=== PATIENT | male | born 1945 | race Caucasian/White ===

== ENCOUNTER 2023-06-27 12:20 | Day surgery (SDC) | payer OTHER ==
[~2023-06-27] VITALS: Ht 177.8 cm; Wt 72.7 kg
[~2023-06-27 12:20] MED LIST: Advil200 M1 PO; CALCA500CH PO; NAPR500 PO
[2023-06-27] MEDS ORDERED: ERGO400 (12:35)
[2023-06-27 14:30] VITALS: BP 131/73
== END 2023-06-27 14:36 | disposition home or self-care (01) ==
LOC: ORSCSDS 12:20
PROVIDERS: Surgery
PROC: 0DBP8ZX Excision of Rectum, Via Natural or Artificial Opening Endoscopic, Diagnostic (ICD-10-PCS; principal; 2023-06-27 13:45)
PROC: 0DBC8ZX Excision of Ileocecal Valve, Via Natural or Artificial Opening Endoscopic, Diagnostic (ICD-10-PCS; principal; 2023-06-27 13:45)
DX: Z12.11 Encounter for screening for malignant neoplasm of colon (principal); Z86.010 Personal history of colon polyps; K62.1 Rectal polyp; K57.30 Diverticulosis of large intestine without perforation or abscess without bleeding; R93.3 Abnormal findings on diagnostic imaging of other parts of digestive tract; E11.9 Type 2 diabetes mellitus without complications; E55.9 Vitamin D deficiency, unspecified; K52.9 Noninfective gastroenteritis and colitis, unspecified; F17.210 Nicotine dependence, cigarettes, uncomplicated
CPT/HCPCS: 88305; J2704; J7120

== ENCOUNTER 2024-06-19 07:54 | Emergency (ER) | payer OTHER ==
[~2024-06-19] VITALS: Ht 177.8 cm; Wt 70.8 kg
[~2024-06-19 07:54] MED LIST changes: +ERGO400
[2024-06-19] MEDS ORDERED: Methocarbamol 500 MG Tab PO ONE (09:10)
[2024-06-19] MEDS ORDERED: Methyl Salicylate/Menth/Camph 57 GM TUBE TOP ONE (09:10)
[2024-06-19] MEDS ORDERED: Ibuprofen 600 MG Tab PO ONE (09:10)
[2024-06-19 09:44] LABS: BASOPHILS ABSOLUTE AUTO 0.02 K/mm3 (0.00-0.23); BASOPHILS PERCENT AUTO 0 % (0-2); EOSINOPHILS ABSOLUTE AUTO 0.11 K/mm3 (0.00-0.68); EOSINOPHILS PERCENT AUTO 2 % (0-6); Hematocrit 44.3 % (37.0-53.0); Hemoglobin 14.8 g/dL (13.5-17.5); IMMATURE GRAN ABSOLUTE AUTO 0.02 K/mm3 (0.00-0.10); IMMATURE GRAN PERCENT AUTO 0 % (0-1); LYMPHOCYTES ABSOLUTE AUTO 1.38 K/mm3 (0.84-5.20); LYMPHOCYTES PERCENT AUTO 19 % (21-46); MONOCYTES ABSOLUTE AUTO 1.31 K/mm3 (0.16-1.47); MONOCYTES PERCENT AUTO 18 % (4-13); Mean Corpuscular HGB 33.2 pg (26.0-34.0); Mean Corpuscular HGB Conc 33.4 g/dL (31.5-36.5); Mean Corpuscular Volume 99 fL (80-100); Mean Platelet Volume 9.6 fL (9.1-12.4); NEUTROPHILS ABSOLUTE AUTO 4.34 K/mm3 (1.96-9.15); NEUTROPHILS PERCENT AUTO 61 % (41-73); Platelet Count 184 K/mm3 (150-400); RDW Coefficient Variation 12.2 % (11.7-14.2); RDW Standard Deviation 45.2 fL (35.1-46.3); Red Blood Cell Count 4.46 M/mm3 (4.30-5.90); White Blood Cell Count 7.18 K/mm3 (4.00-11.30)
[2024-06-19 10:03] LABS: C-REACTIVE PROTEIN, EXT RANGE 0.91 mg/dL (0.000-0.300)
[2024-06-19 10:04] LABS: Bun/Creatinine Ratio 24.5 (12.0-20.0); Calcium, Blood 8.7 mg/dL (8.5-10.1); Creatinine, Blood 0.9 mg/dL (0.60-1.20); Potassium, Blood 4.2 mmol/L (3.5-5.5)
[2024-06-19 10:25] VITALS: BP 128/59
[2024-06-19] MEDS ORDERED: Robaxin750 MG PO (11:27)
== END 2024-06-19 11:30 | disposition home or self-care (01) ==
LOC: ER 07:54
PROVIDERS: Student in an Organized Health Care Education/Training Program
DX: M76.31 Iliotibial band syndrome, right leg (principal); M62.838 Other muscle spasm; Z88.5 Allergy status to narcotic agent; Z79.891 Long term (current) use of opiate analgesic
CPT/HCPCS: 73502; 80048; 82330; 83735; 85025; 86140; A9270

== ENCOUNTER 2024-11-15 09:36 | Emergency (ER) | payer OTHER ==
[~2024-11-15] VITALS: Ht 177.8 cm; Wt 72.6 kg
[~2024-11-15 09:36] MED LIST changes: +Robaxin750 MG PO
[2024-11-15 10:15] LABS: Source, Urine Straight Cath
[2024-11-15 10:20] LABS: Appearance, Urine Clear (Clear); Bilirubin, Urine 1+ (Neg); Blood, Urine 4+ (Neg); Glucose Qualitative, Urine Neg (Neg); Ketones, Urine Neg (Neg); Leukocyte Esterase, Urine 1+ (Neg); Nitrite, Urine Pos (Neg); Protein, Urine 1+ (Neg); Specific Gravity, Urine 1.015 (1.003-1.022); Urobilinogen, Urine 1+ (Normal)
[2024-11-15 10:21] LABS: Color, Urine Orange (P-Yellow)
[2024-11-15 10:22] VITALS: BP 142/56
[2024-11-15 10:26] LABS: Red Blood Cells, Urine 25-50 /hpf (0-2); Squamous Epithelial Cells Rare /hpf (Few)
[2024-11-15 10:27] LABS: Bacteria Few /hpf
[2024-11-15] MEDS ORDERED: CEFP200 PO (11:00)
[2024-11-15] MEDS ORDERED: ONDA4ODT MM (11:00)
== END 2024-11-15 11:28 | disposition home or self-care (01) ==
LOC: ER 09:36
PROVIDERS: Student in an Organized Health Care Education/Training Program
DX: N39.0 Urinary tract infection, site not specified (principal); Z87.448 Personal history of other diseases of urinary system; Z79.899 Other long term (current) drug therapy; Z88.5 Allergy status to narcotic agent
CPT/HCPCS: 51702; 81001; 87086; 99283-25

== ENCOUNTER 2025-04-19 18:35 | Emergency (ER) | payer OTHER ==
[~2025-04-19] VITALS: Ht 177.8 cm; Wt 74.4 kg
[~2025-04-19 18:35] MED LIST changes: +CEFP200 PO; +ONDA4ODT MM
[2025-04-19 19:56] LABS: Source, Urine Clean Catch
[2025-04-19 20:10] LABS: Bilirubin, Urine Neg (Neg); Color, Urine Amber (P-Yellow); Glucose Qualitative, Urine Neg (Neg); Ketones, Urine Neg (Neg); Leukocyte Esterase, Urine 3+ (Neg); Protein, Urine 3+ (Neg); Specific Gravity, Urine 1.020 (1.003-1.022); Urobilinogen, Urine NORM (Normal)
[2025-04-19 20:12] LABS: BASOPHILS ABSOLUTE AUTO 0.03 K/mm3 (0.00-0.23); BASOPHILS PERCENT AUTO 0 % (0-2); EOSINOPHILS ABSOLUTE AUTO 0.00 K/mm3 (0.00-0.68); EOSINOPHILS PERCENT AUTO 0 % (0-6); Hematocrit 43.4 % (37.0-53.0); Hemoglobin 14.5 g/dL (13.5-17.5); IMMATURE GRAN ABSOLUTE AUTO 0.13 K/mm3 (0.00-0.10); IMMATURE GRAN PERCENT AUTO 1 % (0-1); LYMPHOCYTES ABSOLUTE AUTO 0.30 K/mm3 (0.84-5.20); LYMPHOCYTES PERCENT AUTO 2 % (21-46); MONOCYTES ABSOLUTE AUTO 0.85 K/mm3 (0.16-1.47); MONOCYTES PERCENT AUTO 5 % (4-13); Mean Corpuscular HGB Conc 33.4 g/dL (31.5-36.5); Mean Corpuscular Volume 98 fL (80-100); NEUTROPHILS ABSOLUTE AUTO 14.97 K/mm3 (1.96-9.15); NEUTROPHILS PERCENT AUTO 92 % (41-73); NRBC ABSOLUTE 0.00 K/mm3 (0.00-0.02); NRBC Auto 0.0 /100 WBC (0.0-0.2); Platelet Count 133 K/mm3 (150-400); RDW Coefficient Variation 12.8 % (11.7-14.2); RDW Standard Deviation 46.0 fL (35.1-46.3)
[2025-04-19 20:23] LABS: Red Blood Cells, Urine TNTC /hpf (0-2); White Blood Cells, Urine TNTC /hpf (0-5)
[2025-04-19 20:36] LABS: Alanine Aminotransfer (ALT/SGP 34.0 U/L (12-78); Albumin, Blood 2.9 g/dL (3.4-5.0); Albumin/Globulin Ratio 0.7 (0.8-1.8); Anion Gap 9.0 mmol/L (3-11); Aspartate Aminotrans (AST/SGOT 35.0 U/L (12-37); Bilirubin, Total 1.3 mg/dL (0.1-1.0); Blood Urea Nitrogen 36.0 mg/dL (8-24); CO2, Blood 28.0 mmol/L (21-32); Calcium, Blood 9.3 mg/dL (8.5-10.1); Chloride, Blood 97.0 mmol/L (98-108); Creatinine, Blood 1.86 mg/dL (0.60-1.20); Globulin, Blood 4.3 g/dL (2.2-4.0); Glucose, Blood 191.0 mg/dL (70-99); Potassium, Blood 4.6 mmol/L (3.5-5.5); Sodium, Blood 129.0 mmol/L (136-145); Total Protein, Blood 7.2 g/dL (6.4-8.2)
[2025-04-19] MEDS ORDERED: NS 1,000 ML IV SCH (23:30)
[2025-04-19] MEDS ORDERED: CefTRIAXone Sodium 1,000 MG in NS 100 ML IV ONE (23:40)
[2025-04-20] MEDS ORDERED: Morphine Sulfate 4 MG/1 ML Injection IV ONE (00:20)
[2025-04-20] MEDS ORDERED: CIPRO500 M1 PO (00:45)
[2025-04-20 02:08] VITALS: BP 125/59
== END 2025-04-20 02:10 | disposition home or self-care (01) ==
LOC: ER 18:35
PROVIDERS: Student in an Organized Health Care Education/Training Program
DX: N39.0 Urinary tract infection, site not specified (principal); Z79.2 Long term (current) use of antibiotics; Z88.8 Allergy status to other drugs, medicaments and biological substances; Z79.899 Other long term (current) drug therapy; Z90.49 Acquired absence of other specified parts of digestive tract; F17.200 Nicotine dependence, unspecified, uncomplicated
CPT/HCPCS: 80053; 81001; 85025; 87077; 87086; 87186; 96365; 96366; 96375; 99284-25; A9270; J0696; J2270; J7030

== ENCOUNTER → 2025-05-19 | Outpatient (CLI) | payer OTHER ==
[~2025-05-19] MED LIST changes: +CIPRO500 M1 PO
== END ==
LOC: LAB 14:19 → LAB SHORT 14:19
DX: N39.0 Urinary tract infection, site not specified (principal)
CPT/HCPCS: 87077; 87086; 87186